=== PATIENT | female | born 1985 ===

== ENCOUNTER 2018-01-03 05:59 | Emergency (ER) | payer OTHER ==
--- NOTE | 2018-01-03 08:08 | OBDCSUM ---
Datetime: 01/03/2018 07:34 Discharged to, Provider: Home Follow up at, Provider: [facility]ara Disch Instr Activity: Normal activity Disch Instr Diet: Regular Discharge Time: 01/03/2018 07:34 Follow up in weeks, Provider: 01/05/18 Disch Referrals: None Discharge Diagnosis Prov Other: decreased FM - +FM upon discharge
--- NOTE | 2018-01-03 08:08 | OBHP ---
Datetime: 01/03/2018 07:37 IP Adm Impression: , intrauterine ; No Active Labor; Intact Membranes IP Admit Plan: Observation/Evaluation; Discharge home Admit Comment, IP Provider: at 33.3 (confirmed via 1st tri U/s) for decreased movement . Since 3 am (3 hours prior to presentation) patient felt as though baby stopped moving. She denied v aginal bleeding, cramping, contractions and loss of fluid. Upon arriving to [facility] she began to feel as though movements were back to baseline. Thus far has been uncomplicated. Her first p regnancy resulted in a C/S at 35 weeks due to preeclampsia. She is a patient of [facility] in [facility] and her next appointment is in 2 days, Jan 05. : Wesly, next apt 01/05 PMH: denies FHx: denies Allergies: nuts (throat swelling) Social: denies illicit drugs, alcohol, tobacco OBHx: 04/2016 C/S @ 35 weeks d/t preeclampsia ROS: denies headache, dizziness, change in vision, nausea, vomiting, diarrhea, constipation, abdom inal cramping, vaginal bleeding, chest pain and shortness of breath PE: comfortable, in no acute distress CV: RRR Resp: no respiratory distress, good b/l air movement Extremities: no pitting ededma Abd: no tenderness to palpation Labs: unknown, no records Assessment: at 33.3 (confirmed via 1st tri U/s) for decreased movement. Plan: -NST: Reassuring Category 1 - FHR 155, Moderate variability, 15x15 accelerations, no decelerations -Mom reports good movement -Discharge to home, educated on emergent signs and symptoms warranting immediate return to ED -Patient will follow up with Wesly at her regularly scheduled appointment 01/05 Case seen and discussed with Dr Beltre ---Alejandrina Santos, PGY1 [facility] OB Hospitalist note. Pt seen with PGY1. Agree with note. MAHNDO Pelvic Type - PN: Not Done Extremities - PN: Normal Abdomen - PN: Normal Back - PN: Normal Breast - PN: Normal Lungs - PN: Normal Heart - PN: Normal Thyroid - PN: Not Done Neurologic - PN: Not Done HEENT - PN: Normal General - PN: Normal FHR - Baseline A Provider: 140 Contraction Comments Provider: none EGA AdmitDate IP: 33.3 Vital Signs Provider: Reviewed; Within Normal Limits IP Chief Complaint: Decreased movement NICHD Variability Prov Fetus A: Moderate 6-25bpm NICHD Accel Fetus A IP Provider: 15X15 FHR Category Provider Fetus A: Category I NICHD Decel Fetus A IP Provider: None Genitourinary Exam: Not Done DTRs - PN: Normal
[2018-01-03 11:45] VITALS: BP 104/57; PULSE 73; TEMP 98.2; O2SAT 99
== END 2018-01-03 07:44 | disposition home or self-care (01) ==
LOC: H.EROB2 05:59
DX: O36.8131 Decreased fetal movements, third trimester, fetus 1 (principal); Z3A.33 33 weeks gestation of pregnancy; Z87.59 Personal history of other complications of pregnancy, childbirth and the puerperium

== ENCOUNTER 2018-01-10 20:38 | Emergency (ER) | payer OTHER ==
[2018-01-10] MEDS ORDERED: Lactated Ringer's 1,000 ML IV SCH (21:30)
[2018-01-10 21:44] VITALS: BMI 22.9
--- NOTE | 2018-01-10 23:01 | OBHP ---
Datetime: 01/10/2018 21:29 IP Adm Impression: , intrauterine IP Admit Plan: Observation/Evaluation; Discharge home Admit Comment, IP Provider: 32 y/o @ 34.3wks w/EDC of 02/18/2018 _ LMP of 05/14/2017 is presentin g with c/o nonradiating, sharp, left sided abdominal pain since about 3 pm this afternoon. She also h ad 1 episode of nonbloody emesis, but denied any diarrhea, sick contacts or recent travel. She report s a hx of placental abruption at 34wks with _ cholestasis of in previous pregnanc y. She endorses +abdominal itching with serial liver enzyme testing which have all been neg. Her PNP is Dr. Valdivia at [facility]. She states she had frontal headache at about 630pm today, which wu s resolved. Denied any f/c, blurred vision, dizziness, dysuria, cp or shortness of breath. OBGYNhx: placental abruption at 34 wks, pre-eclampsia _ intracholestasis of PMH:none Allergies: nuts-itching Meds: PNV Surghx: , cervical lymph node biopsy, +TB which was treated Famhx: Dad-DM; paternal grandmother- cervical cancer Sochx: Denies cigarette, EtOH or elicit drug use ROS: all 12 points reviewed _ neg unless otherwise mentioned in HPI. VS: 105/63, spo2-99%, HR-72bpm Gen: well appearing female, breathing comfortably, laying in supine position Cardio: s1s2 RRR, no murmurs Resp: cta b/l Abd: Gravid, BS+, nontender FHR- reassuring Pelvic: sterile pelvic exam- no pooling Ext: nonedematous, calves nontender A/P: 32 y/o @ 34.3wks w/EDC of 02/18/2018 _ LMP of 05/14/2017 is presenting with c/o nonradiat ing, sharp, left sided abdominal pain _ hx of placental abruption. 1. Sterile exam- no pooling, no vaginal bleeding; FU ultrasound to ensure intact placenta. 2. Bolus of IV fluids given. 3. Continue FHR monitoring. Patient seen and examined with Dr. Judit Hodgson, FM, PGY-1 OB Hospitalist Addendum: Pt seen and examined by me. Agree w/ above. 32 yo at 34+3 wks w / left sided abdominal pain w/ a h/o placental abruption at 34 weeks w/ her previous . 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 VE closed/ long/ -3. FHT reactive. U/s revealed b madeleine in cephalic presentation, placenta appeared nl, no evidence of abruption. Pt reports that she fe lt better after receiving IV fluid. Pt discharged home and has an appoint w/ her OB tomorrow. (ES) Abdomen - PN: Normal Back - PN: Normal Lungs - PN: Normal Heart - PN: Normal General - PN: Normal Gestation - Est Wks by US: 34.3 EGA AdmitDate IP: 34.3 Vital Signs Provider: Reviewed; Within Normal Limits IP Chief Complaint: Maternal discomfort NICHD Variability Prov Fetus A: Moderate 6-25bpm NICHD Accel Fetus A IP Provider: 15X15 FHR Category Provider Fetus A: Category I NICHD Decel Fetus A IP Provider: None Genitourinary Exam: Normal
[2018-01-11 03:09] VITALS: BP 111/71; PULSE 73; RESP 20; TEMP 98.4; O2SAT 99
--- NOTE | 2018-01-11 11:25 | US ---
Date of service: 01/10/2018 PROCEDURE: OB Pelvic Ultrasound HISTORY: Hx of placental abruption at 34 wks with abd pain COMPARISON: None available. FINDINGS: UTERUS: There is a single live intrauterine fetus in cephalic presentation. heart rate is 143 BPM Placenta is fundal and posterior. FREE FLUID: None. OTHER FINDINGS: None. IMPRESSION: Limited Ob ultrasound. Single live intrauterine fetus in cephalic presentation. Placenta is fundal and posterior. A preliminary report was provided by [facility].
== END 2018-01-10 23:05 | disposition home or self-care (01) ==
LOC: H.EROB2 20:38
DX: O21.0 Mild hyperemesis gravidarum (principal); O26.93 Pregnancy related conditions, unspecified, third trimester; R10.2 Pelvic and perineal pain; Z3A.34 34 weeks gestation of pregnancy
CPT/HCPCS: 76815; 96360; 99284; J7120

== ENCOUNTER 2018-02-19 07:44 | Emergency (ER) | payer OTHER ==
[2018-02-19 07:50] VITALS: BMI 18.7
[2018-02-19 08:40] LABS: BASO % 0.7 % (0.0-2.0); EOS # 0.2 K/uL (0.0-0.7); EOS % 3.1 % (0.0-4.0); HEMOGLOBIN 12.5 g/dL (12.0-16.0); LYMPH # 1.2 K/uL (1.0-4.3); LYMPH % 20.5 % (20.0-40.0); MEAN CELL VOLUME 93.3 fl (81.0-99.0); MEAN CORPUSCULAR HEMOGLOBIN 30.7 pg (27.0-31.0); MEAN CORPUSCULAR HGB CONC 32.9 g/dL (33.0-37.0); MEAN PLATELET VOLUME 7.4 fl (7.2-11.7); MONO # 0.2 K/uL (0.0-0.8); NEUT # 4.3 K/uL (1.8-7.0); NEUT % 71.7 % (50.0-75.0); NRBC % 0.1 % (0.0-0.0); RBC 4.09 Mil/uL (3.80-5.20); RED CELL DISTRIBUTION WIDTH 13.2 % (11.5-14.5)
--- NOTE | 2018-02-19 08:45 | ED PDOC ---
HPI: Chest Pain Time Seen by Provider: 02/19/18 07:53 Chief Complaint (Nursing): Chest Pain Chief Complaint (Provider): Chest pain History Per: Patient History/Exam Limitations: no limitations Onset/Duration Of Symptoms: Hrs Current Symptoms Are (Timing): Still Present Additional Complaint(s): 32 year old female presents to the ED complaining of left sided chest pain that started this morning when patient was breast feeding. Patient reports pain is worse with deep breaths and with movement. She states she had a c section done on February 10. Denies cough, fever, chills, fall, rash, bruising, dysuria, or hematuria. Patient was given Motrin and Tylenol. PMD: none provided Past Medical History Reviewed: Historical Data, Nursing Documentation, Vital Signs Vital Signs: Last Vital Signs Temp 97 F L 02/19/18 07:49 Pulse 46 L 02/19/18 07:49 Resp BP 132/79 02/19/18 07:49 Pulse Ox 100 02/19/18 07:49 - Medical History PMH: No Chronic Diseases - Surgical History Surgical History: (x2) - Family History Family History: States: Unknown Family Hx - Allergies Allergies/Adverse Reactions: Allergies Allergy/AdvReac Type Severity Reaction Status Date / Time nut - unspecified Allergy Mild ITCHING Verified 02/19/18 07:52 Review of Systems ROS Statement: Except As Marked, All Systems Reviewed And Found Negative Constitutional: Negative for: Fever, Chills Cardiovascular: Positive for: Chest Pain (left side) Respiratory: Negative for: Cough (or sputum) Genitourinary Female: Negative for: Dysuria, Hematuria Skin: Negative for: Rash, Bruising Physical Exam - Reviewed Nursing Documentation Reviewed: Yes Vital Signs Reviewed: Yes - Physical Exam Appears: Positive for: Non-toxic, No Acute Distress Head Exam: Positive for: ATRAUMATIC, NORMOCEPHALIC Skin: Positive for: Normal Color, Warm, Dry. Negative for: Rash (on left side of chest) Eye Exam: Positive for: Normal appearance Neck: Positive for: Normal, Painless ROM Cardiovascular/Chest: Positive for: Regular Rate, Rhythm Respiratory: Positive for: Normal Breath Sounds. Negative for: Wheezing, Respiratory Distress Back: Positive for: Normal Inspection. Negative for: L CVA Tenderness, R CVA Tenderness Neurologic/Psych: Positive for: Alert, Oriented. Negative for: Motor/Sensory Deficits - Laboratory Results Result Diagrams: 02/19/18 08:36 02/19/18 08:36 - ECG ECG Rhythm: Positive for: Sinus Rhythm, Sinus Bradycardia Rate: 46 O2 Sat by Pulse Oximetry: 100 (RA) Pulse Ox Interpretation: Normal Medical Decision Making Medical Decision Making: Initial Impression: Chest pain Initial Plan: --ECG --CMP --CBC --Chest X-ray --Morphine 2mg IV Scribe Attestation: Documented by Michael Mckeon acting as a scribe for Elida Gauthier MD. Provider Scribe Attestation: All medical record entries made by the Scribe were at my direction and personally dictated by me. I have reviewed the chart and agree that the record accurately reflects my personal performance of the history, physical exam, medical decision making, and the department course for this patient. I have also personally directed, reviewed, and agree with the discharge instructions and disposition. 12.15 p - results of blood tests and imaging reviewed with patient and with the male friend of her at bedside. is home taking care of the 22 month old and the . She is concerned about having a heart attack and why she has pain in the mid abdomen. Reassured patient. Advised to observe for symptoms: fever, shortness or breath, worsening pain, foul vaginal discharge or heavy bleeding. Disposition - Clinical Impression Clinical Impression: Atypical chest pain, amenorrhea - Patient ED Disposition Is Patient to be Admitted: No Doctor Will See Patient In The: Office Counseled Patient/Family Regarding: Diagnosis - Disposition Disposition: Routine/Home Disposition Time: 12:15 Condition: STABLE Additional Instructions: Please followup with your personal physicians. Return to nearest ER if you develop fever, worsening pain, worsening shortness of breath, chills. Instructions: Chest Pain That Is Not Caused by the Heart (DC), What to Watch for After You Have a Baby Forms: [employer] (Bangladeshi) - POA Present On Arrival: None
[2018-02-19 08:53] LABS: ALB/GLOB RATIO 1.1 (1.0-2.1); ALBUMIN 3.5 g/dL (3.5-5.0); ALT/SGPT 20 U/L (9-52); AST/SGOT 19 U/L (14-36); BLOOD UREA NITROGEN 12 mg/dl (7-17); CALCIUM 8.6 mg/dL (8.4-10.2); GFR NON-AFRICAN AMERICAN > 60
--- NOTE | 2018-02-19 09:14 | RAD ---
Date of service: 02/19/2018 HISTORY: left lateral chest pain COMPARISON: No prior. TECHNIQUE: Chest PA and lateral FINDINGS: LUNGS: No active pulmonary disease. PLEURA: No significant pleural effusion identified. No pneumothorax apparent. CARDIOVASCULAR: No aortic atherosclerotic calcification present. Normal cardiac size. No pulmonary vascular congestion. OSSEOUS STRUCTURES: No significant abnormalities. VISUALIZED UPPER ABDOMEN: Normal. OTHER FINDINGS: None. IMPRESSION: No acute cardiopulmonary disease appreciated.
--- NOTE | 2018-02-19 12:28 | US ---
Date of service: 02/19/2018 HISTORY: pelvic pain post COMPARISON: Obstetric ultrasound 01/10/2018. TECHNIQUE: Transvaginal pelvic ultrasound was performed with longitudinal and transverse images submitted for interpretation. FINDINGS: UTERUS: Measures 12.9 x 10.6 x 7.4 cm. Uterus is expectedly enlarged in this patient status post recent on 02/10/2018. No definitive myometrial pathology is appreciable. Prior intrauterine gestation is not identified status post cervical section delivery. ENDOMETRIUM: Measures 19.5 mm total thickness. There is fluid and debris in the endometrial cavity with the debris appearing avascular reflecting either hemorrhagic material or possible retained soft tissue. Clinically correlate further. CERVIX: No cervical abnormality identified. RIGHT OVARY: The right ovary is not identified. LEFT OVARY: Measures 2.7 x 2.9 x 2.5 cm. No solid mass. Normal flow. FREE FLUID: No significant free fluid noted. OTHER FINDINGS: None. IMPRESSION: Enlarged uterus is expectedly identified anteverted with prominent endometrium to 19.5 mm and fluid in the endometrial cavity. Debris seen in the endometrial cavity which is avascular. This may reflect hemorrhage but further clinical correlation is advised. Retained products of conception is not favored given lack of vascularity. Right ovary not identified. Unremarkable left ovary. No discrete myometrial lesion appreciable.
[2018-02-19 12:52] VITALS: BP 110/60; PULSE 60; RESP 19; TEMP 97.6; O2SAT 99
--- NOTE | 2018-02-19 15:00 | CARD ---
APPROVED REPORT Date of service: 02/19/2018 EKG Measurement Heart [id number] <Conclusion> Sinus bradycardia with sinus arrhythmia Otherwise normal ECG
== END 2018-02-19 12:53 | disposition home or self-care (01) ==
LOC: H.ER 07:44
DX: R07.9 Chest pain, unspecified (principal); N91.2 Amenorrhea, unspecified
CPT/HCPCS: 71046; 76830; 80053; 81025; 85025; 93005; 99284; J2270